=== PATIENT | female | born 1995 | race Caucasian/White ===

== ENCOUNTER 2017-07-18 02:01 | Emergency (ER) | payer BC, OTHER ==
[~2017-07-18] VITALS: Ht 170.2 cm; Wt 56.3 kg
[~2017-07-18 02:01] MED LIST: BCPILLS PO; MULT1CHW4 PO
[2017-07-18 02:20] VITALS: TEMP 36.8; Ht 170.2 cm; Wt 56.3 kg
[2017-07-18 03:13] LABS: BASO % 0.2 %; BASO ABS # 0.02 K/uL (0-0.2); COMPLETE YES; EOS % 0.2 %; HEMATOCRIT 43.6 % (37-47); IG% 0.1 %; LYMPH ABS # 3.31 K/uL (1.2-3.4); MEAN CELL VOLUME 88.3 fL (80-100); MEAN CORPUSCULAR HEMOGLOBIN 30.2 pg (25-34); MEAN CORPUSCULAR HGB CONC 34.2 g/dl (32-36); MEAN PLATELET VOLUME 10.1 fL (7.4-10.4); MONO % 10.1 %; NEUT % 53.4 %; PLATELET COUNT 324 K/uL (130-400); RED BLOOD COUNT 4.94 M/uL (4.2-5.4); WHITE BLOOD COUNT 9.19 K/uL (4.8-10.8)
[2017-07-18 03:28] LABS: URINE APPEARANCE CLEAR (CLEAR); URINE BILIRUBIN NEG (NEG); URINE COLOR YELLOW; URINE NITRITE NEG (NEG); URINE PH 6.5 (4.5-7.5); URINE SPECIFIC GRAVITY 1.013 (1.000-1.030); UROBILINOGEN NEG (NEG); ZZUR CULT IF INDIC CLEAN CATCH NO
[2017-07-18 03:30] LABS: MANUAL MICROSCOPIC REQUIRED? NO; REVIEW REQ? NO
[2017-07-18 03:37] LABS: BUN/CREATININE RATIO 10.8 (10-20); CALCIUM 9.2 mg/dl (8.5-10.1); POTASSIUM 3.5 mmol/L (3.5-5.1)
[2017-07-18] MEDS ORDERED: BUPR200T2 PO (03:39)
[2017-07-18] MEDS ORDERED: BUPR-79 PO (03:39)
[2017-07-18 03:48] LABS: THYROID STIMULATING HORMONE 2.73 uIu/ml (0.300-4.500)
[2017-07-18 03:58] LABS: BENZODIAZEPINE, URINE NEG (NEG); COCAINE,URINE POS (NEG); PHENCYCLIDINE, URINE NEG (NEG)
[2017-07-18] MEDS ORDERED: LIDO/EPINEPHRINE/SOD BICARB 20 ML VIAL INFIL ONE (04:54)
--- NOTE | 2017-07-18 06:11 | EMERGENCY ROOM VISIT NOTE ---
History Report prepared by Jd: Jannette Weaver Under the Supervision of: Dr. Wendy Alvarez D.O. First contact with patient: 04:00 Chief Complaint: MENTAL HEALTH EVALUATION Stated Complaint: 1 OR 2 STITCHES,ARM LAC History of Present Illness The patient is a 22 year old female who presents to the Emergency Room with complaints of a laceration to the arm which occurred [employer]. The patient states that she cut herself using scissors. She has a history of depression and is on Welbutrin. She was feeling stressed out today because she ran into her ex- boyfriend of 2 months who is from out of town. She has a history of cutting when she is stressed out. She notes that she has not cut in a while. She has not required stitches before. She denies harming herself in any other way. She denies any history of suicide attempts. She does follow with a counselor. Her tetanus is up to date. She was drinking today. She no longer feels intoxicated. She denies any recreational drug use. She denies any recent medication changes. She denies any abdominal pain, back pain, fall, or trauma. Source of History: patient Onset: [employer]EC[employer] Position: arm (left) Quality: other (laceration) Timing: other (episodic) Associated Symptoms: No abdominal pain, No back pain Review of Systems See HPI for pertinent positives & negatives. A total of 10 systems reviewed and were otherwise negative. Past Medical & Surgical Medical Problems: (1) History of tonsillitis Family History Diabetes mellitus FHx: cancer FHx: heart disease Hypertension Kidney disease Kidney stones Social History Smoking Status: Current Some Day Smoker Marital Status: single Housing Status: lives with roommate Occupation Status: [place] [employer] student Current/Historical Medications Scheduled Bupropion (Wellbutrin Sr), 400 MG PO DAILY Allergies Coded Allergies: No Known Allergies (Unverified , 07/18/17) Physical Exam Vital Signs Date Time Temp Pulse Resp B/P (MAP) Pulse Ox O2 Delivery O2 Flow Rate FiO2 07/18/17 06:20 90 18 133/71 98 07/18/17 02:20 36.8 111 18 129/77 97 Room Air Physical Exam GENERAL: alert, well appearing, well nourished, no distress, non-toxic EYE EXAM: normal conjunctiva, PERRL and EOM's grossly intact OROPHARYNX: no exudate, no erythema, lips, buccal mucosa, and tongue normal and mucous membranes are moist NECK: supple, no nuchal rigidity, no adenopathy, non-tender LUNGS: Clear to auscultation. Normal chest wall mechanics HEART: no murmurs, S1 normal and S2 normal ABDOMEN: abdomen soft, non-tender, normo-active bowel sounds, no masses, no rebound or guarding. BACK: Back is symmetrical on inspection and there is no deformity, no midline tenderness, no CVA tenderness. SKIN: no rashes and no bruising UPPER EXTREMITIES: 2 lacerations to the left ventral forearm. LOWER EXTREMITIES: No pitting edema. NEURO EXAM: Normal sensorium, cranial nerves II-XII grossly intact, normal speech, no gross weakness of arms, no gross weakness of legs. Medical Decision & Procedures Laboratory Results 07/18/17 02:50 Red Blood Count 4.94, Mean Corpuscular Volume 88.3, Mean Corpuscular Hemoglobin 30.2, Mean Corpuscular Hemoglobin Concent 34.2, Mean Platelet Volume 10.1, Neutrophils (%) (Auto) 53.4, Lymphocytes (%) (Auto) 36.0, Monocytes (%) (Auto) 10.1, Eosinophils (%) (Auto) 0.2, Basophils (%) (Auto) 0.2, Neutrophils # (Auto ) 4.90, Lymphocytes # (Auto) 3.31, Monocytes # (Auto) 0.93, Eosinophils # (Auto ) 0.02, Basophils # (Auto) 0.02 07/18/17 02:50 Test 07/18/17 02:35 07/18/17 02:50 Urine Color YELLOW Urine Appearance CLEAR (CLEAR) Urine pH 6.5 (4.5-7.5) Urine Specific [place] 1.013 (1.000-1.030) Urine Protein NEG (NEG) Urine Glucose (UA) NEG (NEG) Urine Ketones NEG (NEG) Urine Occult Blood TRACE (NEG) Urine Nitrite NEG (NEG) Urine Bilirubin NEG (NEG) Urine Urobilinogen NEG (NEG) Urine Leukocyte Esterase NEG (NEG) Urine WBC (Auto) 0 /hpf (0-5) Urine RBC (Auto) 0-4 /hpf (0-4) Urine Hyaline Casts (Auto) 0 /lpf (0-5) Urine Epithelial Cells (Auto) 5-10 /lpf (0-5) Urine Bacteria (Auto) NEG (NEG) Urine Test NEG (NEG) Urine Opiates Screen NEG (NEG) Urine Methadone, Qualitative NEG (NEG) Urine Barbiturates NEG (NEG) Urine Phencyclidine (PCP) Level NEG (NEG) Ur Amphetamine/Methamphetamine NEG (NEG) MDMA (Ecstasy) Screen POS (NEG) Urine Benzodiazepines Screen NEG (NEG) Urine Cocaine Metabolite POS (NEG) Urine Marijuana (THC) POS (NEG) White Blood Count 9.19 K/uL (4.8-10.8) Red Blood Count 4.94 M/uL (4.2-5.4) Hemoglobin 14.9 g/dL (12.0-16.0) Hematocrit 43.6 % (37-47) Mean Corpuscular Volume 88.3 fL (80-100) Mean Corpuscular Hemoglobin 30.2 pg (25-34) Mean Corpuscular Hemoglobin Concent 34.2 g/dl (32-36) Platelet Count 324 K/uL (130-400) Mean Platelet Volume 10.1 fL (7.4-10.4) Neutrophils (%) (Auto) 53.4 % Lymphocytes (%) (Auto) 36.0 % Monocytes (%) (Auto) 10.1 % Eosinophils (%) (Auto) 0.2 % Basophils (%) (Auto) 0.2 % Neutrophils # (Auto) 4.90 K/uL (1.4-6.5) Lymphocytes # (Auto) 3.31 K/uL (1.2-3.4) Monocytes # (Auto) 0.93 K/uL (0.11-0.59) Eosinophils # (Auto) 0.02 K/uL (0-0.5) Basophils # (Auto) 0.02 K/uL (0-0.2) RDW Standard Deviation 46.4 fL (36.4-46.3) RDW Coefficient of Variation 14.2 % (11.5-14.5) Immature Granulocyte % (Auto) 0.1 % Immature Granulocyte # (Auto) 0.01 K/uL (0.00-0.02) Anion Gap 10.0 mmol/L (3-11) Est Creatinine Clear Calc Drug Dose 79.1 ml/min Estimated GFR () 93.3 Estimated GFR (Non- 80.5 BUN/Creatinine Ratio 10.8 (10-20) Calcium Level 9.2 mg/dl (8.5-10.1) Total Bilirubin 0.9 mg/dl (0.2-1) Aspartate Amino Transf (AST/SGOT) 21 U/L (15-37) Alanine Aminotransferase (ALT/SGPT) 19 U/L (12-78) Alkaline Phosphatase 87 U/L (45-117) Total Protein 8.5 gm/dl (6.4-8.2) Albumin 4.3 gm/dl (3.4-5.0) Globulin 4.2 gm/dl (2.5-4.0) Albumin/Globulin Ratio 1.0 (0.9-2) Thyroid Stimulating Hormone (TSH) 2.730 uIu/ml (0.300-4.500) Ethyl Alcohol mg/dL 112.0 mg/dl (0-3) Laboratory results per my review. Procedure Location: left ventral forearm Total length: 1.5 cm Complexity: simple Verbal consent was obtained after the risks and benefits were explained, including but not limited to bleeding, scarring, infection, pain, and bone/joint /nerve damage. At this time, the risks of the procedure are less than the risks of NOT performing the procedure. A time out was taken and the correct patient and site identified. The target area was anesthetized with 3 ml of 1% lidocaine with epinephrine. Copious irrigation was performed using NSS. The skin was prepped with a sterile field set. The wound was explored for foreign bodies and none found. Examination revealed no injury to deep structures such as tendons, bone, or significant blood vessels. Debridement was not performed. The wound edges were approximated using 2, 5-0 simple interrupted nylon sutures. Hemostasis and excellent approximation was achieved. Antibacterial ointment and a sterile dressing applied. Detailed wound care instructions and signs and symptoms of infection reviewed with the patient. No complications and the patient tolerated the procedure well. ED Course 0403: The patient was evaluated in room A5. A complete history and physical exam was performed. 0452: The laceration was repaired according to the procedure note above. I discussed the findings and the treatment plan with the patient. She verbalizes agreement and understanding. She was discharged home. 0454: Lidocaine/Epinephrine 20 ml INFIL. Medical Decision Differential diagnosis: Etiologies such as mood disorder, infection, hypoglycemia, electrolyte abnormalities, cardiac sources, intracerebral event, toxicologic, neurologic, as well as others were entertained. Patient with small superficial lacerations from cutting. These were repaired at bedside and patient was evaluated by psychiatric case management. After additional discussion, patient felt stable for discharge. Discussed with patient symptoms to watch and return for, appropriate coping strategies, patient given additional resources by psychiatric correctional case manager. She verbalized understanding of all this was agreeable with plan. No evidence of any additional trauma, doubt any additional pathology such as infection or electrolyte abnormalities contributing patient's presentation today. Medication Reconcilliation Current Medication List: was personally reviewed by me Blood Pressure Screening Patient's blood pressure: Normal blood pressure Blood pressure disposition: Did not require urgent referral Impression Primary Impression: Depression Additional Impressions: Self-harm Laceration Scribe Attestation The scribe's documentation has been prepared under my direction and personally reviewed by me in its entirety. I confirm that the note above accurately reflects all work, treatment, procedures, and medical decision making performed by me. Departure Information Dispostion Home / Self-Care Referrals [facility] (PCP) Patient Instructions My [facility] Additional Instructions Please follow up with the recommendations made by the correctional case manager. The stitches in your arm will need to be removed in one week. Please monitor for any surrounding redness, drainage, pain, or pink streaking up the arm is these could be signs of infection. If you notice any the symptoms or have any other new concerns, please return the emergency room. If you're feeling more depressed, or having thoughts about hurting herself including cutting again, or thoughts of hurting anyone else, please return the emergency room. Problem Qualifiers Primary Impression: Depression Depression Type: unspecified Qualified Codes: F32.9 - Major depressive disorder, single episode, unspecified
[2017-07-18 06:20] VITALS: BP 133/71; PULSE 90; O2SAT 98
[2017-07-22 09:29] LABS: COCAINE, URINE 4770 NG/ML (CUTOFF=100)
== END 2017-07-18 06:21 | disposition home or self-care (01) ==
LOC: C.EDB 02:03 → C.EDA 06:21
DX: S51.812A Laceration without foreign body of left forearm, initial encounter (principal); X78.8XXA Intentional self-harm by other sharp object, initial encounter; Y92.9 Unspecified place or not applicable; F32.9 Major depressive disorder, single episode, unspecified; Z83.3 Family history of diabetes mellitus; Z80.9 Family history of malignant neoplasm, unspecified; Z82.49 Family history of ischemic heart disease and other diseases of the circulatory system; Z84.1 Family history of disorders of kidney and ureter; F17.210 Nicotine dependence, cigarettes, uncomplicated; Z79.899 Other long term (current) drug therapy